=== PATIENT | female | born 1940 | race Caucasian/White ===

== ENCOUNTER 2017-05-29 19:52 | Inpatient (IN) | payer OTHER, MEDICAID ==
[~2017-05-29] VITALS: Ht 157.5 cm; Wt 103.9 kg
[2017-05-29 19:55] VITALS: BP_SYST 87
[2017-05-29 21:41] LABS: BASOPHILS # (AUTO) 0.2 K/uL (0.0-0.2); BASOPHILS % (AUTO) 1.9 % (0.0-2.0); EOSINOPHILS # (AUTO) 0.6 K/uL (0.0-0.4); EOSINOPHILS % (AUTO) 6.8 % (0.0-4.0); HEMATOCRIT 34.4 % (36-48); HEMOGLOBIN 11.1 g/dL (12.0-16.0); LYMPHOCYTES # (AUTO) 1.8 K/uL (1.0-5.5); LYMPHOCYTES % (AUTO) 19.8 % (20.5-51.5); MEAN CORPUSCULAR HEMOGLOBIN 30 pg (27-31); MEAN CORPUSCULAR HGB CONC 32 % (32-36); MEAN CORPUSCULAR VOLUME 92 fL (79.0-98.0); MONOCYTES # (AUTO) 0.6 K/uL (0.0-1.0); MONOCYTES % (AUTO) 7.2 % (1.7-9.3); NEUTROPHILS # (AUTO) 5.7 K/uL (1.8-7.7); NEUTROPHILS % (AUTO) 64.3 % (40.0-70.0); PLATELET COUNT (AUTO) 241 K/uL (130-430); RED BLOOD CELL COUNT(AUTO) 3.75 MIL/uL (4.2-6.2); RED CELL DISTRIBUTION WIDTH 12.9 % (9.0-15.0); WHITE BLOOD COUNT (AUTO) 8.9 K/uL (4.8-10.8)
[2017-05-29 21:44] LABS: ANION GAP 7 (5-15); CALCIUM 8.8 mg/dL (8.4-11.0); CHLORIDE 102 mmol/L (98-107); CREATININE 4.81 mg/dL (0.55-1.30); GLUCOSE 179 mg/dL (70-99); SODIUM SERUM 138 mmol/L (136-145)
[2017-05-29 21:51] LABS: POTASSIUM 6.7 mmol/L (3.5-5.1)
[2017-05-29 21:52] LABS: UREA NITROGEN, BLOOD 144 mg/dL (8-21)
[2017-05-29 21:56] LABS: TOTAL BILIRUBIN 0.1 mg/dL (0.0-1.0)
[2017-05-29 21:58] LABS: ASPARTATE AMINOTRANSFERASE 23 U/L (10-37)
[2017-05-29 21:59] LABS: ALANINE AMINOTRANSFERASE 28 U/L (12-78); ALBUMIN 2.7 g/dL (3.4-4.8); PHOSPHORUS 6.4 mg/dL (2.7-4.5); TOTAL PROTEIN, SERUM 7.6 g/dL (6.4-8.3)
[2017-05-29] MEDS ORDERED: DEXTROSE 50% JECT 50 ML DISP.SYRIN IVP ONE (22:00)
[2017-05-29] MEDS ORDERED: INSULIN REGULAR, HUMAN 10 UNITS/0.1 ML INJ IVP ONE (22:00)
[2017-05-29 22:05] LABS: BILIRUBIN,URINE NEGATIVE (NEGATIVE); BLOOD, URINE 2+ (NEGATIVE); CLARITY/URINE CLOUDY (CLEAR); COLOR,URINE YELLOW (YELLOW); GLUCOSE,URINE NEGATIVE (NEGATIVE); KETONES,URINE NEGATIVE (NEGATIVE); LEUKOCYTE ESTERASE ,URINE 2+ (NEGATIVE); NITRITE, URINE NEGATIVE (NEGATIVE); PH,URINE 5.5 (5.0-8.0); PROTEIN URINE NEGATIVE (NEGATIVE); UROBILINOGEN,URINE 0.2 (0.2-1.0)
[2017-05-29 22:20] LABS: BACTERIA,URINE MODERATE /HPF (None Seen); WBC,URINE >100 /HPF (0-3)
[2017-05-29 22:21] LABS: MUCUS,URINE None Seen /LPF (None Seen); URINE AMORPHOUS URATE 2+ /HPF (None Seen)
[2017-05-29] MEDS ORDERED: HYDR-1189 PO (23:01)
[2017-05-29] MEDS ORDERED: ACET-1010 PO (23:01)
[2017-05-29] MEDS ORDERED: DULR10 RC (23:01)
[2017-05-29] MEDS ORDERED: ACET325T53 PO (23:01)
[2017-05-29] MEDS ORDERED: MAGN400O4 PO (23:01)
[2017-05-29] MEDS ORDERED: IPRA3AMP9 HHN (23:01)
[2017-05-29] MEDS ORDERED: NA P118E RC (23:01)
[2017-05-29] MEDS ORDERED: NACL 0.9% 1,000 ML IV ONE (23:30)
[2017-05-29] MEDS ORDERED: IPRATROPIUM/ALBUTEROL SULFATE 3 ML AMPUL.NEB INH PRN (23:45)
[2017-05-30] VITALS (27 sets, daily range): BP systolic 81–144
[2017-05-30] MEDS ORDERED: PIPERACILLIN/TAZOBACTAM 3.375 GM/VIAL (ZOSYN) IV ONE (00:27)
[2017-05-30] MEDS ORDERED: NACL 0.9% 1,000 ML IV ONE (01:15)
[2017-05-30] MEDS: PIPERACILLIN/TAZO 3.375 GM in NS 50 ML IV SCH ×3 (02:30→13:38)
[2017-05-30] MEDS ORDERED: NACL 0.9% 1,000 ML IV SCH (03:00)
[2017-05-30] MEDS ORDERED: SODIUM POLYSTYRENE SULFONATE 15 GM/60 ML UDBTL PO ONE (05:15)
[2017-05-30] MEDS ORDERED: NS 500 ML IV ONE ×2 (05:15→08:45)
[2017-05-30] MEDS ORDERED: COMMUNICATION ORDER XX ONE (05:15)
[2017-05-30] MEDS ORDERED: ERTAPENEM SODIUM 1 GM/VIAL (INVANZ) ONE (05:54)
[2017-05-30] MEDS: D5NS 1,000 ML IV SCH ×4 (06:23→20:15)
[2017-05-30] MEDS: ERTAPENEM SODIUM 1 GM in NS 50 ML IV SCH (06:26)
[2017-05-30 07:09] LABS: ALANINE AMINOTRANSFERASE 21 U/L (12-78); ALBUMIN 2.4 g/dL (3.4-4.8); ANION GAP 4 (5-15); ASPARTATE AMINOTRANSFERASE 21 U/L (10-37); CALCIUM 7.9 mg/dL (8.4-11.0); CHLORIDE 106 mmol/L (98-107); CREATININE 4.45 mg/dL (0.55-1.30); GLUCOSE 137 mg/dL (70-99); POTASSIUM 5.7 mmol/L (3.5-5.1); SODIUM SERUM 139 mmol/L (136-145); TOTAL BILIRUBIN 0.1 mg/dL (0.0-1.0); TOTAL PROTEIN, SERUM 6.5 g/dL (6.4-8.3)
[2017-05-30 07:32] LABS: UREA NITROGEN, BLOOD 127 mg/dL (8-21)
[2017-05-30 13:17] LABS: ANION GAP 6 (5-15); CALCIUM 7.9 mg/dL (8.4-11.0); CHLORIDE 109 mmol/L (98-107); CREATININE 4.03 mg/dL (0.55-1.30); GLUCOSE 226 mg/dL (70-99); POTASSIUM 5.5 mmol/L (3.5-5.1); SODIUM SERUM 140 mmol/L (136-145)
[2017-05-30 13:19] LABS: UREA NITROGEN, BLOOD 117 mg/dL (8-21)
[2017-05-30] MEDS ORDERED: LOPERAMIDE HCL 2 MG CAPSULE PO PRN (21:00)
[2017-05-30 21:05] LABS: INR 0.9 (0.8-1.2); PROTHROMBIN TIME 10.2 SECS (9.5-12.5)
[2017-05-30] MEDS: LACTOBACILLUS RHAMNOSUS GG 1 CAP CAPSULE PO SCH (21:48)
[2017-05-31] VITALS (17 sets, daily range): BP systolic 100–131
[2017-05-31] MEDS: D5NS 1,000 ML IV SCH ×2 (04:23→16:23)
[2017-05-31] MEDS: ERTAPENEM SODIUM 1 GM in NS 50 ML IV SCH (05:41)
[2017-05-31 06:56] LABS: BASOPHILS % (AUTO) 0.6 % (0.0-2.0); EOSINOPHILS # (AUTO) 0.4 K/uL (0.0-0.4); EOSINOPHILS % (AUTO) 4.9 % (0.0-4.0); HEMATOCRIT 33.5 % (36-48); HEMOGLOBIN 11.3 g/dL (12.0-16.0); LYMPHOCYTES # (AUTO) 1.6 K/uL (1.0-5.5); MEAN CORPUSCULAR HEMOGLOBIN 31 pg (27-31); MEAN CORPUSCULAR HGB CONC 34 % (32-36); MEAN CORPUSCULAR VOLUME 92 fL (79.0-98.0); MONOCYTES # (AUTO) 0.6 K/uL (0.0-1.0); MONOCYTES % (AUTO) 8.2 % (1.7-9.3); NEUTROPHILS # (AUTO) 5.1 K/uL (1.8-7.7); NEUTROPHILS % (AUTO) 65.3 % (40.0-70.0); PLATELET COUNT (AUTO) 217 K/uL (130-430); RED BLOOD CELL COUNT(AUTO) 3.66 MIL/uL (4.2-6.2); RED CELL DISTRIBUTION WIDTH 13.6 % (9.0-15.0); WHITE BLOOD COUNT (AUTO) 7.7 K/uL (4.8-10.8)
[2017-05-31 07:09] LABS: ALANINE AMINOTRANSFERASE 27 U/L (12-78); ALBUMIN 2.5 g/dL (3.4-4.8); ANION GAP 4 (5-15); ASPARTATE AMINOTRANSFERASE 31 U/L (10-37); CALCIUM 8.2 mg/dL (8.4-11.0); CHLORIDE 110 mmol/L (98-107); CHOLESTEROL 96 mg/dL (<200); GLUCOSE 131 mg/dL (70-99); HDL CHOLESTEROL 39 mg/dL (>55); LDL CHOLESTEROL 40 mg/dL (<100); SODIUM SERUM 143 mmol/L (136-145); THYROID STIMULATING HORMONE 4.45 uIu/mL (0.34-4.82); TOTAL BILIRUBIN 0.2 mg/dL (0.0-1.0); TOTAL PROTEIN, SERUM 7.4 g/dL (6.4-8.3); TRIGLYCERIDES 114 mg/dL (30-150); UREA NITROGEN, BLOOD 96 mg/dL (8-21)
[2017-05-31] MEDS: LACTOBACILLUS RHAMNOSUS GG 1 CAP CAPSULE PO SCH ×2 (08:55→21:49)
[2017-06-01 00:26] VITALS: BP_SYST 134
[2017-06-01] MEDS: D5NS 1,000 ML IV SCH ×3 (01:36→22:00)
[2017-06-01 04:07] VITALS: BP_SYST 124
[2017-06-01] MEDS ORDERED: ACETAMINOPHEN 325 MG TABLET PO PRN (05:15)
[2017-06-01] MEDS: ACETAMINOPHEN 325 MG TABLET PO PRN (05:33)
[2017-06-01] MEDS: ERTAPENEM SODIUM 1 GM in NS 50 ML IV SCH (05:33)
[2017-06-01 06:21] LABS: BASOPHILS # (AUTO) 0.1 K/uL (0.0-0.2); BASOPHILS % (AUTO) 0.7 % (0.0-2.0); EOSINOPHILS # (AUTO) 0.4 K/uL (0.0-0.4); EOSINOPHILS % (AUTO) 4.7 % (0.0-4.0); HEMATOCRIT 30.2 % (36-48); HEMOGLOBIN 10.1 g/dL (12.0-16.0); LYMPHOCYTES # (AUTO) 1.6 K/uL (1.0-5.5); LYMPHOCYTES % (AUTO) 19.3 % (20.5-51.5); MEAN CORPUSCULAR HEMOGLOBIN 31 pg (27-31); MEAN CORPUSCULAR HGB CONC 34 % (32-36); MEAN CORPUSCULAR VOLUME 92 fL (79.0-98.0); MONOCYTES # (AUTO) 0.6 K/uL (0.0-1.0); MONOCYTES % (AUTO) 7.1 % (1.7-9.3); NEUTROPHILS # (AUTO) 5.7 K/uL (1.8-7.7); NEUTROPHILS % (AUTO) 68.2 % (40.0-70.0); PLATELET COUNT (AUTO) 231 K/uL (130-430); RED BLOOD CELL COUNT(AUTO) 3.29 MIL/uL (4.2-6.2); RED CELL DISTRIBUTION WIDTH 12.7 % (9.0-15.0); WHITE BLOOD COUNT (AUTO) 8.4 K/uL (4.8-10.8)
[2017-06-01 06:36] LABS: ALANINE AMINOTRANSFERASE 19 U/L (12-78); ALBUMIN 2.3 g/dL (3.4-4.8); ANION GAP 3 (5-15); ASPARTATE AMINOTRANSFERASE 17 U/L (10-37); CALCIUM 8.1 mg/dL (8.4-11.0); CHLORIDE 111 mmol/L (98-107); CREATININE 2.26 mg/dL (0.55-1.30); GLUCOSE 157 mg/dL (70-99); POTASSIUM 4.4 mmol/L (3.5-5.1); SODIUM SERUM 141 mmol/L (136-145); TOTAL BILIRUBIN 0.1 mg/dL (0.0-1.0); TOTAL PROTEIN, SERUM 6.6 g/dL (6.4-8.3); UREA NITROGEN, BLOOD 63 mg/dL (8-21)
[2017-06-01 09:08] VITALS: BP_SYST 126
[2017-06-01] MEDS: LACTOBACILLUS RHAMNOSUS GG 1 CAP CAPSULE PO SCH ×2 (09:09→21:41)
[2017-06-01 13:05] VITALS: BP_SYST 148
[2017-06-01 16:45] VITALS: BP_SYST 139
[2017-06-01 19:30] VITALS: BP_SYST 157
[2017-06-02] VITALS (8 sets, daily range): BP systolic 141–166
[2017-06-02] MEDS: ACETAMINOPHEN 325 MG TABLET PO PRN (01:12)
[2017-06-02] MEDS: ERTAPENEM SODIUM 1 GM in NS 50 ML IV SCH (05:18)
[2017-06-02 06:48] LABS: BASOPHILS # (AUTO) 0.1 K/uL (0.0-0.2); BASOPHILS % (AUTO) 0.7 % (0.0-2.0); EOSINOPHILS # (AUTO) 0.4 K/uL (0.0-0.4); EOSINOPHILS % (AUTO) 4.4 % (0.0-4.0); HEMATOCRIT 30.4 % (36-48); HEMOGLOBIN 10.2 g/dL (12.0-16.0); LYMPHOCYTES # (AUTO) 2.1 K/uL (1.0-5.5); LYMPHOCYTES % (AUTO) 24.7 % (20.5-51.5); MEAN CORPUSCULAR HEMOGLOBIN 31 pg (27-31); MEAN CORPUSCULAR HGB CONC 34 % (32-36); MEAN CORPUSCULAR VOLUME 92 fL (79.0-98.0); MONOCYTES # (AUTO) 0.6 K/uL (0.0-1.0); MONOCYTES % (AUTO) 6.8 % (1.7-9.3); NEUTROPHILS # (AUTO) 5.4 K/uL (1.8-7.7); NEUTROPHILS % (AUTO) 63.4 % (40.0-70.0); PLATELET COUNT (AUTO) 229 K/uL (130-430); RED BLOOD CELL COUNT(AUTO) 3.33 MIL/uL (4.2-6.2); RED CELL DISTRIBUTION WIDTH 12.7 % (9.0-15.0); WHITE BLOOD COUNT (AUTO) 8.6 K/uL (4.8-10.8)
[2017-06-02 08:13] LABS: ALANINE AMINOTRANSFERASE 22 U/L (12-78); ALBUMIN 2.4 g/dL (3.4-4.8); ANION GAP 5 (5-15); ASPARTATE AMINOTRANSFERASE 21 U/L (10-37); CALCIUM 8.1 mg/dL (8.4-11.0); CHLORIDE 113 mmol/L (98-107); CREATININE 1.75 mg/dL (0.55-1.30); GLUCOSE 117 mg/dL (70-99); POTASSIUM 4.8 mmol/L (3.5-5.1); SODIUM SERUM 144 mmol/L (136-145); TOTAL BILIRUBIN 0.1 mg/dL (0.0-1.0); TOTAL PROTEIN, SERUM 6.3 g/dL (6.4-8.3); UREA NITROGEN, BLOOD 46 mg/dL (8-21)
[2017-06-02] MEDS: LACTOBACILLUS RHAMNOSUS GG 1 CAP CAPSULE PO SCH (08:28)
[2017-06-02] MEDS: D5NS 1,000 ML IV SCH (14:06)
[2017-06-02] MEDS ORDERED: ERTA1VIA IVPB (20:09)
== END 2017-06-02 21:08 | DRG 682 ==
LOC: SED 19:52 → STU 23:37 → SIC 05-30 → STU 05-30 00:11 → SIC 05-30 01:41 → STU 05-31 14:50 → SMU 06-01 15:18
PROVIDERS: ADMIT Internal Medicine Hospice and Palliative Medicine; ATTEND Internal Medicine Hospice and Palliative Medicine
PROC: 02HV33Z Insertion of Infusion Device into Superior Vena Cava, Percutaneous Approach (ICD-10-PCS; principal; 2017-05-31)
PROC: B548ZZA Ultrasonography of Superior Vena Cava, Guidance (ICD-10-PCS; 2017-05-31)
DX: N17.0 Acute kidney failure with tubular necrosis (principal); E43 Unspecified severe protein-calorie malnutrition; N39.0 Urinary tract infection, site not specified; I69.354 Hemiplegia and hemiparesis following cerebral infarction affecting left non-dominant side; I50.32 Chronic diastolic (congestive) heart failure; I13.0 Hypertensive heart and chronic kidney disease with heart failure and stage 1 through stage 4 chronic kidney disease, or unspecified chronic kidney disease; B96.20 Unspecified Escherichia coli [E. coli] as the cause of diseases classified elsewhere; E86.0 Dehydration; E87.5 Hyperkalemia; F17.200 Nicotine dependence, unspecified, uncomplicated; I09.9 Rheumatic heart disease, unspecified; N18.3 Chronic kidney disease, stage 3 (moderate); J44.9 Chronic obstructive pulmonary disease, unspecified; I95.9 Hypotension, unspecified; B95.2 Enterococcus as the cause of diseases classified elsewhere; Z16.12 Extended spectrum beta lactamase (ESBL) resistance; Z87.440 Personal history of urinary (tract) infections; Z90.710 Acquired absence of both cervix and uterus; Z90.49 Acquired absence of other specified parts of digestive tract; Z74.01 Bed confinement status; Z79.899 Other long term (current) drug therapy; Z79.01 Long term (current) use of anticoagulants
CPT/HCPCS: 36415; 71010; 71250-TC; 80048; 80053; 80061; 81000-TC; 82962; 83605; 83735-TC; 83880; 84100-TC; 84443-TC; 84484; 85025; 85610-TC; 85730-TC; 87040-TC; 87081; 87086; 87186-TC; 93005; 93306; 94640; 96361; 96374; 96375; 99285; C1751; C1769; J1335; J1815; J2543; J7030; J7040; J7042; J7060; J7120

== ENCOUNTER 2017-07-17 09:46 | Emergency (ER) | payer OTHER, MEDICAID ==
[~2017-07-17] VITALS: Ht 160 cm; Wt 90.7 kg
[2017-07-17 09:46] VITALS: BP_SYST 102
[~2017-07-17 09:46] MED LIST: ACET-1010 PO; ACET325T53 PO; DULR10 RC; ERTA1VIA IVPB; HYDR-1189 PO; IPRA3AMP9 HHN; MAGN400O4 PO; NA P118E RC
--- NOTE | 2017-07-17 09:46 | NUR ---
BIB CARE from [facility].
--- NOTE | 2017-07-17 09:46 | NUR ---
Patient to ER bed 06 to gown for evaluation. Side rails up. Report given to Agus.
--- NOTE | 2017-07-17 10:03 | NUR ---
Pt was brought in by BLS for assited fall on the left knee, pt states foster care worker was helping her from the bed to the chair and the pt fell and hit her left knee, there is an abrasion to left knee, pt had a stroke 6 years ago with left sided weakness. Pt is aox4, denies loss of consciousness but has upper back pain as well. No other injuries/complaints per pt or noted.
[2017-07-17] MEDS ORDERED: ASPI-1063 PO (10:07)
[2017-07-17] MEDS ORDERED: MELA3TAB37 PO (10:07)
[2017-07-17] MEDS ORDERED: OMEP40CA33 PO (10:07)
[2017-07-17] MEDS ORDERED: NEU100 PO (10:07)
[2017-07-17] MEDS ORDERED: CEL20 PO (10:07)
--- NOTE | 2017-07-17 10:07 | NUR ---
Medication reconciliation completed with information provided by [facility]. Any prior medication reconciliation on file was reviewed and corrected.
[2017-07-17] MEDS ORDERED: NACL 0.9% 1,000 ML IV ONE (10:15)
[2017-07-17] MEDS ORDERED: KETOROLAC TROMETHAMINE 30 MG VIAL IVP ONE (10:15)
--- NOTE | 2017-07-17 10:20 | NUR ---
ER at bedside examining patient.
[2017-07-17 10:48] LABS: BASOPHILS # (AUTO) 0.1 K/uL (0.0-0.2); LYMPHOCYTES # (AUTO) 1.3 K/uL (1.0-5.5); MEAN CORPUSCULAR HGB CONC 33 % (32-36)
[2017-07-17 10:51] LABS: ANION GAP 7 (5-15); BASOPHILS % (AUTO) 0.8 % (0.0-2.0); CALCIUM 9.1 mg/dL (8.4-11.0); CHLORIDE 104 mmol/L (98-107); CREATININE 1.47 mg/dL (0.55-1.30); EOSINOPHILS # (AUTO) 0.3 K/uL (0.0-0.4); EOSINOPHILS % (AUTO) 4.2 % (0.0-4.0); GLUCOSE 129 mg/dL (70-99); HEMATOCRIT 35.4 % (36-48); HEMOGLOBIN 11.7 g/dL (12.0-16.0); LYMPHOCYTES % (AUTO) 16.3 % (20.5-51.5); MEAN CORPUSCULAR HEMOGLOBIN 30 pg (27-31); MEAN CORPUSCULAR VOLUME 90 fL (79.0-98.0); MONOCYTES # (AUTO) 0.4 K/uL (0.0-1.0); MONOCYTES % (AUTO) 5.4 % (1.7-9.3); NEUTROPHILS % (AUTO) 73.3 % (40.0-70.0); PLATELET COUNT (AUTO) 266 K/uL (130-430); POTASSIUM 4.5 mmol/L (3.5-5.1); RED BLOOD CELL COUNT(AUTO) 3.94 MIL/uL (4.2-6.2); RED CELL DISTRIBUTION WIDTH 12.8 % (9.0-15.0); SODIUM SERUM 141 mmol/L (136-145); UREA NITROGEN, BLOOD 29 mg/dL (8-21); WHITE BLOOD COUNT (AUTO) 8.1 K/uL (4.8-10.8)
--- NOTE | 2017-07-17 10:54 | NUR ---
Pain medication was given, pt tolerated well, no adverse reaction. Will continue to monitor.
[2017-07-17 10:57] LABS: ALANINE AMINOTRANSFERASE 27 U/L (12-78); ALBUMIN 2.8 g/dL (3.4-4.8); ASPARTATE AMINOTRANSFERASE 26 U/L (10-37); TOTAL BILIRUBIN 0.3 mg/dL (0.0-1.0)
--- NOTE | 2017-07-17 11:49 | NUR ---
Pt resting comfortably with no noted distress or discomfort.
--- NOTE | 2017-07-17 12:30 | NUR ---
Daughter is at bedside, pt is resting comfortably with no noted distress or dscomfort. Waiting for results.
--- NOTE | 2017-07-17 13:30 | NUR ---
Dr Bhagat is at bedside speaking to daughter and pt
--- NOTE | 2017-07-17 14:30 | NUR ---
Dr Bhagat is at bedside explaining results to daughter and pt. Pt is going back to [facility].
--- NOTE | 2017-07-17 14:30 | NUR ---
Called [facility] for transportation for pt and they states will be there within the hour. Pt and son is aware.
--- NOTE | 2017-07-17 15:30 | NUR ---
Pt is resting comfortably in bed with no noted distress or discomfort.
[2017-07-17 15:52] LABS: BILIRUBIN,URINE NEGATIVE (NEGATIVE); CLARITY/URINE CLOUDY (CLEAR); COLOR,URINE YELLOW (YELLOW); GLUCOSE,URINE NEGATIVE (NEGATIVE); KETONES,URINE NEGATIVE (NEGATIVE); LEUKOCYTE ESTERASE ,URINE 3+ (NEGATIVE); NITRITE, URINE POSITIVE (NEGATIVE); PROTEIN URINE 1+ (NEGATIVE); UROBILINOGEN,URINE 0.2 (0.2-1.0)
[2017-07-17 15:53] LABS: BLOOD, URINE TRACE (NEGATIVE)
[2017-07-17 16:09] VITALS: BP_SYST 131
--- NOTE | 2017-07-17 16:09 | NUR ---
Patient given written and verbal discharge instructions and verbalizes understanding. ER MD discussed with patient the results and treatment provided. Patient in stable condition. ID arm band removed. IV catheter removed intact and dressing applied, no active bleeding. No Rx given. Patient educated on pain management and to follow up with PMD. Pain Scale 3. Dr. Bhagat is aware, pain medication was given here. Opportunity for questions provided and answered.
[2017-07-17 16:11] LABS: RBC,URINE 0-3 /HPF (0-3); WBC,URINE >100 /HPF (0-3)
[2017-07-17 16:12] LABS: BACTERIA,URINE MANY /HPF (None Seen); MUCUS,URINE None Seen /LPF (None Seen)
[2017-07-17 16:13] LABS: URINE AMORPHOUS URATE 3+ /HPF (None Seen)
--- NOTE | 2017-07-19 12:57 | NUR ---
Recieved positive urine culture. Faxed results to Natalee at [facility] [phone]
== END 2017-07-17 16:09 | disposition home or self-care (01) ==
LOC: SED 09:46
DX: S83.92XA Sprain of unspecified site of left knee, initial encounter (principal); I11.0 Hypertensive heart disease with heart failure; I50.9 Heart failure, unspecified; M81.0 Age-related osteoporosis without current pathological fracture; I10 Essential (primary) hypertension; Z79.82 Long term (current) use of aspirin; W19.XXXA Unspecified fall, initial encounter; Y93.89 Activity, other specified; Y92.89 Other specified places as the place of occurrence of the external cause; Y99.8 Other external cause status; Z90.710 Acquired absence of both cervix and uterus
CPT/HCPCS: 36415; 72192; 73564; 73700; 80053; 81000; 85025; 85610; 85730; 87086; 87186; 96361; 96374; 99285; J1885; J7030

== ENCOUNTER 2017-07-29 12:31 | Inpatient (IN) | payer OTHER, MEDICAID ==
[~2017-07-29] VITALS: Ht 160 cm; Wt 60.3 kg
[~2017-07-29 12:31] MED LIST changes: +ASPI-1063 PO; +CEL20 PO; -ERTA1VIA IVPB; +MELA3TAB37 PO; +NEU100 PO; +OMEP40CA33 PO
[2017-07-29 12:32] VITALS: BP_SYST 109
[2017-07-29] MEDS ORDERED: INVI1 IV (12:45)
[2017-07-29 13:49] LABS: ANION GAP 6 (5-15); CALCIUM 9.4 mg/dL (8.4-11.0); CHLORIDE 102 mmol/L (98-107); CREATININE 1.41 mg/dL (0.55-1.30); GLUCOSE 106 mg/dL (70-99); POTASSIUM 4.5 mmol/L (3.5-5.1); SODIUM SERUM 135 mmol/L (136-145); UREA NITROGEN, BLOOD 29 mg/dL (8-21)
[2017-07-29 13:52] LABS: BASOPHILS # (AUTO) 0.1 K/uL (0.0-0.2); BASOPHILS % (AUTO) 0.9 % (0.0-2.0); EOSINOPHILS # (AUTO) 0.4 K/uL (0.0-0.4); EOSINOPHILS % (AUTO) 4.6 % (0.0-4.0); HEMATOCRIT 35.1 % (36-48); HEMOGLOBIN 11.3 g/dL (12.0-16.0); LYMPHOCYTES % (AUTO) 23.9 % (20.5-51.5); MEAN CORPUSCULAR HEMOGLOBIN 29 pg (27-31); MEAN CORPUSCULAR HGB CONC 32 % (32-36); MEAN CORPUSCULAR VOLUME 90 fL (79.0-98.0); MONOCYTES # (AUTO) 0.7 K/uL (0.0-1.0); NEUTROPHILS # (AUTO) 5.1 K/uL (1.8-7.7); NEUTROPHILS % (AUTO) 62.6 % (40.0-70.0); PLATELET COUNT (AUTO) 310 K/uL (130-430); RED BLOOD CELL COUNT(AUTO) 3.89 MIL/uL (4.2-6.2); RED CELL DISTRIBUTION WIDTH 12.9 % (9.0-15.0); WHITE BLOOD COUNT (AUTO) 8.3 K/uL (4.8-10.8)
[2017-07-29 13:54] LABS: ALANINE AMINOTRANSFERASE 28 U/L (12-78); ALBUMIN 2.4 g/dL (3.4-4.8); ASPARTATE AMINOTRANSFERASE 26 U/L (10-37); TOTAL BILIRUBIN 0.2 mg/dL (0.0-1.0)
[2017-07-29 15:13] VITALS: BP_SYST 130
[2017-07-29] MEDS ORDERED: COMMUNICATION ORDER XX ONE (16:00)
[2017-07-29] MEDS ORDERED: ACETAMINOPHEN 500 MG TABLET PO PRN (16:00)
[2017-07-29] MEDS ORDERED: ACETAMINOPHEN 325 MG TABLET PO PRN ×2 (16:00→16:15)
[2017-07-29] MEDS ORDERED: BISACODYL 10 MG/SUPPOSITORY RC PRN (16:00)
[2017-07-29 16:08] VITALS: BP_SYST 130
[2017-07-29] MEDS: HYDROcodone/ACETAMIN 5-325 MG TAB (NORCO/ VICODIN) PO PRN ×2 (16:21→22:55)
[2017-07-29] MEDS: ERTAPENEM SODIUM 1 GM in NS 50 ML IV SCH (17:36)
[2017-07-29] MEDS ORDERED: FLU VACC QS 2017-18(36MOS+)/PF 0.5 ML/SYR SYRINGE I.M. PRN (20:00)
[2017-07-29] MEDS: VANCOMYCIN HCL 500 MG in NS 100 ML IV SCH (20:42)
[2017-07-29 20:52] VITALS: BP_SYST 106
[2017-07-29 20:58] VITALS: BP_SYST 102
[2017-07-29] MEDS ORDERED: GABAPENTIN 100 MG CAPSULE PO SCH (21:00)
[2017-07-30] VITALS (7 sets, daily range): BP systolic 111–127
[2017-07-30] MEDS: OMEPRAZOLE 20 MG CAPSULE.DR (PriLOSEC) PO SCH (08:25)
[2017-07-30] MEDS: ASPIRIN 81 MG TABLET(ECOTRIN) PO SCH (08:25)
[2017-07-30] MEDS: CITALOPRAM HYDROBROMIDE 20 MG TABLET PO SCH (08:25)
[2017-07-30] MEDS ORDERED: TEMAZEPAM 15 MG CAPSULE PO PRN (08:45)
[2017-07-30] MEDS: MORPHINE 2 MG/ML INJ. SYRINGE IVP PRN ×2 (14:03→17:32)
[2017-07-30] MEDS: ERTAPENEM SODIUM 1 GM in NS 50 ML IV SCH (17:32)
[2017-07-30] MEDS ORDERED: MORPHINE 4 MG/ML INJ. SYRINGE IVP PRN (17:45)
[2017-07-30] MEDS: GABAPENTIN 100 MG CAPSULE PO SCH ×2 (21:10→21:13)
[2017-07-30] MEDS: VANCOMYCIN HCL 500 MG in NS 100 ML IV SCH (21:10)
[2017-07-30] MEDS: HYDROcodone/ACETAMIN 5-325 MG TAB (NORCO/ VICODIN) PO PRN (21:22)
[2017-07-31 03:40] VITALS: BP_SYST 113
[2017-07-31] MEDS: MORPHINE 2 MG/ML INJ. SYRINGE IVP PRN (05:58)
[2017-07-31 08:22] VITALS: BP_SYST 120
[2017-07-31] MEDS: OMEPRAZOLE 20 MG CAPSULE.DR (PriLOSEC) PO SCH (09:28)
[2017-07-31] MEDS: ASPIRIN 81 MG TABLET(ECOTRIN) PO SCH (09:28)
[2017-07-31] MEDS: GABAPENTIN 100 MG CAPSULE PO SCH ×2 (09:28→20:10)
[2017-07-31] MEDS: CITALOPRAM HYDROBROMIDE 20 MG TABLET PO SCH (09:28)
[2017-07-31 12:00] VITALS: BP_SYST 98
[2017-07-31 16:55] VITALS: BP_SYST 118
[2017-07-31] MEDS: ERTAPENEM SODIUM 1 GM in NS 50 ML IV SCH (17:44)
[2017-07-31 20:00] VITALS: BP_SYST 115
[2017-07-31] MEDS: VANCOMYCIN HCL 500 MG in NS 100 ML IV SCH (20:10)
[2017-07-31 23:45] VITALS: BP_SYST 117
[2017-08-01 04:06] VITALS: BP_SYST 124
[2017-08-01 07:55] VITALS: BP_SYST 149
[2017-08-01] MEDS ORDERED: HYDROcodone/ACETAMIN 10-325 MG TAB PO PRN (09:00)
[2017-08-01] MEDS: MORPHINE 2 MG/ML INJ. SYRINGE IVP PRN ×2 (09:26→22:46)
[2017-08-01] MEDS: OMEPRAZOLE 20 MG CAPSULE.DR (PriLOSEC) PO SCH (09:27)
[2017-08-01] MEDS: ASPIRIN 81 MG TABLET(ECOTRIN) PO SCH (09:27)
[2017-08-01] MEDS: CITALOPRAM HYDROBROMIDE 20 MG TABLET PO SCH (09:27)
[2017-08-01] MEDS: GABAPENTIN 100 MG CAPSULE PO SCH ×2 (09:27→22:12)
[2017-08-01 12:14] VITALS: BP_SYST 107
[2017-08-01 16:35] VITALS: BP_SYST 127
[2017-08-01] MEDS: ERTAPENEM SODIUM 1 GM in NS 50 ML IV SCH (18:09)
[2017-08-01 19:30] VITALS: BP_SYST 128
[2017-08-01 23:35] VITALS: BP_SYST 129
[2017-08-02 03:54] VITALS: BP_SYST 125
[2017-08-02 08:15] VITALS: BP_SYST 127
[2017-08-02] MEDS: CITALOPRAM HYDROBROMIDE 20 MG TABLET PO SCH (09:27)
[2017-08-02] MEDS: ASPIRIN 81 MG TABLET(ECOTRIN) PO SCH (09:27)
[2017-08-02] MEDS: GABAPENTIN 100 MG CAPSULE PO SCH (09:27)
[2017-08-02] MEDS: OMEPRAZOLE 20 MG CAPSULE.DR (PriLOSEC) PO SCH (09:27)
[2017-08-02 11:31] VITALS: BP_SYST 118
[2017-08-02] MEDS: HYDROcodone/ACETAMIN 5-325 MG TAB (NORCO/ VICODIN) PO PRN (11:35)
[2017-08-02 13:23] VITALS: BP_SYST 118
[2017-08-02] MEDS: MORPHINE 2 MG/ML INJ. SYRINGE IVP PRN (14:07)
== END 2017-08-02 15:01 | DRG 543 ==
LOC: SED 12:31 → SMU 14:41
PROVIDERS: ADMIT Internal Medicine Hospice and Palliative Medicine; ATTEND Internal Medicine Hospice and Palliative Medicine
DX: M84.462A Pathological fracture, left tibia, initial encounter for fracture (principal); I13.0 Hypertensive heart and chronic kidney disease with heart failure and stage 1 through stage 4 chronic kidney disease, or unspecified chronic kidney disease; I50.9 Heart failure, unspecified; N39.0 Urinary tract infection, site not specified; L03.119 Cellulitis of unspecified part of limb; E44.1 Mild protein-calorie malnutrition; B96.20 Unspecified Escherichia coli [E. coli] as the cause of diseases classified elsewhere; N18.9 Chronic kidney disease, unspecified; R29.6 Repeated falls; Z16.12 Extended spectrum beta lactamase (ESBL) resistance; Z86.73 Personal history of transient ischemic attack (TIA), and cerebral infarction without residual deficits; Z79.82 Long term (current) use of aspirin; Z79.899 Other long term (current) drug therapy
CPT/HCPCS: 36415; 72170-TC; 73502; 73552; 73560-TC; 73590-TC; 80053; 85025; 85610-TC; 85730-TC; 87081; 87086; 93971; 99285; J1335; J2270; J3370; J7050; Q2037

== ENCOUNTER 2018-12-13 19:57 | Emergency (ER) | payer OTHER ==
[~2018-12-13] VITALS: Ht 170.2 cm; Wt 77.1 kg
[~2018-12-13 19:57] MED LIST changes: -ACET-1010 PO; +ACET-2634 PO; +ASCO500T20 PO; -ASPI-1063 PO; +ASPI-1153 PO; +INSU100V7 SUBCUT; +IPRA3AMP9 INH; -MAGN400O4 PO; -MELA3TAB37 PO; +METF850T2 PO; +MOM PO; +MULT PO; -NA P118E RC; +ZOLP5TAB2 PO
[2018-12-13 20:00] VITALS: BP_SYST 122
[2018-12-13] MEDS ORDERED: NACL 0.9% 1,000 ML IV ONE ×2 (20:30→22:30)
[2018-12-13] MEDS ORDERED: ONDANSETRON HCL 4 MG/2 ML VIAL IVP ONE (20:30)
[2018-12-13] MEDS ORDERED: MORPHINE 4 MG/ML INJ. SYRINGE IVP ONE (20:30)
[2018-12-13] MEDS ORDERED: TRAV2.5D OP (21:37)
[2018-12-13 21:38] LABS: ANION GAP 7 (5-15); CALCIUM 8.7 mg/dL (8.4-11.0); CHLORIDE 107 mmol/L (98-107); CREATININE 1.24 mg/dL (0.55-1.30); GLUCOSE 112 mg/dL (70-99); POTASSIUM 3.7 mmol/L (3.5-5.1); SODIUM SERUM 139 mmol/L (136-145); UREA NITROGEN, BLOOD 28 mg/dL (8-21)
[2018-12-13] MEDS ORDERED: CRAN500T2 PO (21:38)
[2018-12-13 21:43] LABS: ALANINE AMINOTRANSFERASE 30 U/L (12-78); ALBUMIN 2.3 g/dL (3.4-4.8); ASPARTATE AMINOTRANSFERASE 26 U/L (10-37); TOTAL BILIRUBIN 0.2 mg/dL (0.0-1.0)
[2018-12-13] MEDS ORDERED: FAMO20TA8 PO (21:51)
[2018-12-13] MEDS ORDERED: ALPHAGANP OP (21:52)
[2018-12-13] MEDS ORDERED: FLEETMO RC (21:56)
[2018-12-13] MEDS ORDERED: ANT30 PO (21:56)
[2018-12-13 21:58] LABS: BASOPHILS # (AUTO) 0.1 K/uL (0.0-0.2); BASOPHILS % (AUTO) 0.7 % (0.0-2.0); EOSINOPHILS # (AUTO) 0.4 K/uL (0.0-0.4); EOSINOPHILS % (AUTO) 4.3 % (0.0-4.0); HEMATOCRIT 33.4 % (36-48); HEMOGLOBIN 10.7 g/dL (12.0-16.0); LYMPHOCYTES # (AUTO) 2.8 K/uL (1.0-5.5); LYMPHOCYTES % (AUTO) 33.8 % (20.5-51.5); MEAN CORPUSCULAR HEMOGLOBIN 31 pg (27-31); MEAN CORPUSCULAR HGB CONC 32 % (32-36); MEAN CORPUSCULAR VOLUME 96 fL (79.0-98.0); MONOCYTES # (AUTO) 0.6 K/uL (0.0-1.0); MONOCYTES % (AUTO) 7.7 % (1.7-9.3); NEUTROPHILS # (AUTO) 4.4 K/uL (1.8-7.7); NEUTROPHILS % (AUTO) 53.5 % (40.0-70.0); PLATELET COUNT (AUTO) 289 K/uL (130-430); RED BLOOD CELL COUNT(AUTO) 3.49 MIL/uL (4.2-6.2); RED CELL DISTRIBUTION WIDTH 13.6 % (9.0-15.0); WHITE BLOOD COUNT (AUTO) 8.3 K/uL (4.8-10.8)
[2018-12-13 22:13] LABS: BILIRUBIN,URINE NEGATIVE (NEGATIVE); BLOOD, URINE 3+ (NEGATIVE); CLARITY/URINE CLOUDY (CLEAR); COLOR,URINE YELLOW (YELLOW); GLUCOSE,URINE NEGATIVE (NEGATIVE); KETONES,URINE NEGATIVE (NEGATIVE); LEUKOCYTE ESTERASE ,URINE 3+ (NEGATIVE); PROTEIN URINE 2+ (NEGATIVE)
[2018-12-13 22:14] LABS: NITRITE, URINE POSITIVE (NEGATIVE); UROBILINOGEN,URINE 0.2 (0.2-1.0)
[2018-12-13 22:17] LABS: BACTERIA,URINE MANY /HPF (None Seen); MUCUS,URINE None Seen /LPF (None Seen); RBC,URINE >100 /HPF (0-3); WBC,URINE >100 /HPF (0-3)
[2018-12-13] MEDS ORDERED: cefTRIAXone 1 GM IVPB PREMIX 50 ML IV ONE (22:30)
[2018-12-14 00:27] VITALS: BP_SYST 116
== END 2018-12-14 00:27 | disposition home or self-care (01) ==
LOC: SED 19:57
DX: E86.0 Dehydration (principal); N39.0 Urinary tract infection, site not specified; D64.9 Anemia, unspecified; I11.0 Hypertensive heart disease with heart failure; I50.9 Heart failure, unspecified; J44.9 Chronic obstructive pulmonary disease, unspecified; Z86.73 Personal history of transient ischemic attack (TIA), and cerebral infarction without residual deficits; Z90.49 Acquired absence of other specified parts of digestive tract; Z79.82 Long term (current) use of aspirin; Z79.899 Other long term (current) drug therapy
CPT/HCPCS: 36415; 74176; 80053; 81000; 83605; 85025; 87040; 87086; 87186; 96361; 96365; 96375; 99284; J0696; J2270; J2405; J7030

== ENCOUNTER 2019-11-25 13:13 | Emergency (ER) | payer OTHER, MEDICAID ==
[~2019-11-25] VITALS: Ht 177.8 cm; Wt 79.4 kg
[~2019-11-25 13:13] MED LIST changes: +ALPHAGANP OP; +ANT30 PO; +CRAN500T2 PO; +FAMO20TA8 PO; +FLEETMO RC; +METF-380 PO; -METF850T2 PO; +TRAV2.5D OP; -ZOLP5TAB2 PO
[2019-11-25 13:26] VITALS: BP_SYST 123
--- NOTE | 2019-11-25 13:35 | NUR ---
Placed in room 01 . Placed on upper trimmer, blood pressure machine and pulse oximeter. To gown for exam. Side rails up. Report given to Keiko NORRIS.
--- NOTE | 2019-11-25 13:40 | NUR ---
pt came to ER for congestion, 10/10 back pain. Pt O2 WNL, AO4, compliant with care
--- NOTE | 2019-11-25 13:42 | NUR ---
Pt AAOx3 BIB BLS from [facility] c/o 08/13 low back pain and congestion x 1 week. Was given Robitussin prior to arrival. Skin dry and warm, breathing even and unlabored. Cough noted. Lung sounds clear. No other injuries/complaints per pt/noted. Will continue to monitor.
--- NOTE | 2019-11-25 13:55 | NUR ---
care endorsed to Ayden
--- NOTE | 2019-11-25 14:08 | NUR ---
ER at bedside examining patient.
[2019-11-25] MEDS ORDERED: NS 1000 ML IV.SOLN IV ONE (14:15)
[2019-11-25] MEDS ORDERED: GUAI5SYR PO (14:30)
[2019-11-25] MEDS ORDERED: INSU100V7 SUBCUT (14:30)
[2019-11-25] MEDS ORDERED: ACET325T53 PO (14:30)
[2019-11-25] MEDS ORDERED: CEL20 PO (14:30)
--- NOTE | 2019-11-25 14:30 | NUR ---
Medication reconciliation completed with information provided by facility. Any prior medication reconciliation on file was reviewed and corrected.
[2019-11-25 14:50] LABS: BASOPHILS # (AUTO) 0.1 K/uL (0.0-0.2); BASOPHILS % (AUTO) 0.8 % (0.0-2.0); EOSINOPHILS # (AUTO) 0.5 K/uL (0.0-0.4); HEMATOCRIT 36.5 % (36-48); HEMOGLOBIN 12.1 g/dL (12.0-16.0); LYMPHOCYTES # (AUTO) 1.6 K/uL (1.0-5.5); LYMPHOCYTES % (AUTO) 23.9 % (20.5-51.5); MEAN CORPUSCULAR HEMOGLOBIN 31 pg (27-31); MEAN CORPUSCULAR HGB CONC 33 % (32-36); MEAN CORPUSCULAR VOLUME 94 fL (79.0-98.0); MONOCYTES # (AUTO) 0.6 K/uL (0.0-1.0); MONOCYTES % (AUTO) 9.1 % (1.7-9.3); NEUTROPHILS # (AUTO) 3.9 K/uL (1.8-7.7); NEUTROPHILS % (AUTO) 59.2 % (40.0-70.0); PLATELET COUNT (AUTO) 216 K/uL (130-430); RED BLOOD CELL COUNT(AUTO) 3.87 MIL/uL (4.2-6.2); RED CELL DISTRIBUTION WIDTH 13.2 % (9.0-15.0); WHITE BLOOD COUNT (AUTO) 6.6 K/uL (4.8-10.8)
[2019-11-25 14:54] LABS: PROTHROMBIN TIME 10.4 SECS (9.5-12.5)
[2019-11-25 15:02] LABS: CALCIUM 8.8 mg/dL (8.4-11.0); CHLORIDE 104 mmol/L (98-107); CREATININE 1.36 mg/dL (0.55-1.30); GLUCOSE 112 mg/dL (70-99); POTASSIUM 4.2 mmol/L (3.5-5.1); SODIUM SERUM 132 mmol/L (136-145); UREA NITROGEN, BLOOD 29 mg/dL (8-21)
[2019-11-25 15:07] LABS: ALANINE AMINOTRANSFERASE 23 U/L (12-78); ALBUMIN 2.8 g/dL (3.4-4.8); ASPARTATE AMINOTRANSFERASE 20 U/L (10-37); TOTAL BILIRUBIN 0.2 mg/dL (0.0-1.0)
[2019-11-25 15:17] LABS: ANION GAP < 3 (5-15)
--- NOTE | 2019-11-25 16:20 | NUR ---
#14 FR straight catheter with use of sterile technique. Immediate return of 100 cc hazy yellow urine noted. Bedside drainage bag placed below level of bladder. Urine sample collected and sent to lab. Pt tolerated procedure well. Patient unable to toilet self.
[2019-11-25 16:31] LABS: BILIRUBIN,URINE NEGATIVE (NEGATIVE); CLARITY/URINE CLOUDY (CLEAR); COLOR,URINE YELLOW (YELLOW); GLUCOSE,URINE NEGATIVE (NEGATIVE); KETONES,URINE NEGATIVE (NEGATIVE); LEUKOCYTE ESTERASE ,URINE 3+ (NEGATIVE); NITRITE, URINE POSITIVE (NEGATIVE); PROTEIN URINE 1+ (NEGATIVE); UROBILINOGEN,URINE 0.2 (0.2-1.0)
[2019-11-25 16:32] LABS: BLOOD, URINE TRACE (NEGATIVE)
[2019-11-25 16:59] LABS: BACTERIA,URINE MANY /HPF (None Seen); WBC,URINE 50-80 /HPF (0-3)
--- NOTE | 2019-11-25 17:20 | NUR ---
RT at bedside for breathing tx
--- NOTE | 2019-11-25 17:22 | NUR ---
Pt moved to bed 03
--- NOTE | 2019-11-25 17:24 | NUR ---
Dr. Pineda at bedside speaking with pt regarding results
[2019-11-25] MEDS ORDERED: ALBUTEROL SULFATE 0.083% 2.5 MG/3 ML VIAL.NEB INH ONE (17:30)
[2019-11-25] MEDS ORDERED: cefTRIAXone 2 GM VIAL ONE (17:57)
--- NOTE | 2019-11-25 18:45 | NUR ---
Aydee dalton in ED - 11/25/19 at 2008 by [email or web address] Pt taken to [facility] for CT scan with contrast via BLS.
[2019-11-25 21:20] VITALS: BP_SYST 175
--- NOTE | 2019-11-25 21:20 | NUR ---
Patient given written and verbal discharge instructions and verbalizes understanding. ER MD Dr. Pineda discussed with patient the results and treatment provided. Patient in stable condition. ID arm band removed. IV catheter removed intact and dressing applied, no active bleeding. Patient educated on pain management and to follow up with PMD. Pain Scale 0/10. Opportunity for questions provided and answered. Medication side effect fact sheet provided. Patient will be transported BLS via [facility] to [facility], her normal place of residence.
--- NOTE | 2019-11-25 21:30 | NUR ---
Courtesy report given to Damaris Niño RN at [phone] regarding patient discharge. Notified RN that patient is en route via BLS transportation provided by [facility].
== END 2019-11-25 21:30 | disposition home or self-care (01) ==
LOC: SED 13:13
DX: N39.0 Urinary tract infection, site not specified (principal); R05 Cough; E86.0 Dehydration; J44.9 Chronic obstructive pulmonary disease, unspecified; I13.0 Hypertensive heart and chronic kidney disease with heart failure and stage 1 through stage 4 chronic kidney disease, or unspecified chronic kidney disease; E11.22 Type 2 diabetes mellitus with diabetic chronic kidney disease; N18.9 Chronic kidney disease, unspecified; I50.9 Heart failure, unspecified; Z86.79 Personal history of other diseases of the circulatory system; Z87.440 Personal history of urinary (tract) infections; Z79.899 Other long term (current) drug therapy; Z79.4 Long term (current) use of insulin
CPT/HCPCS: 36415; 71045; 80053; 81000; 83605; 85025; 85610; 85730; 86710; 87040; 87086; 87186; 93005; 94640; 96361; 96365; 99284; J0696; J7030; J7613